=== PATIENT | female | born 1980 | race Caucasian/White ===

== ENCOUNTER 2025-03-12 20:44 | Emergency (ER) | payer MEDICARE, OTHER, SELFPAY ==
[2025-03-12 20:46] VITALS: BP 116/81
[2025-03-12 21:10] LABS: Hematocrit 43.1 % (37.0-47.0); Hemoglobin 14.8 g/dL (12.0-16.0); Mean Corp Hgb Conc. 34.3 g/dL (33.0-37.0); Mean Corpuscular Volume 94.3 fL (81.0-99.0); Nucleated Red Blood Cells % 0 %; Platelet Count 293 10^3/uL (130-400); Red Cell Dist. Width 12.9 % (11.5-14.5)
[2025-03-12 21:23] LABS: HCG, Serum Qualitative Screen Negative
[2025-03-12 21:30] LABS: ALT (SGPT) 24 U/L (0-35); AST (SGOT) 27 U/L (14-36); Albumin 4.4 g/dl (3.5-5.0); Alkaline Phosphatase 57 U/L (38-126); Blood Urea Nitrogen 12 mg/dl (7-17); COVID-19 Antigen Negative (Negative); Calcium 9.6 mg/dl (8.4-10.2); Carbon Dioxide 29 mmol/L (22-30); Chloride 103 mmol/L (98-107); Glucose 71 mg/dl (70-99); Potassium 4.2 mmol/L (3.5-5.1); Sodium 137 mmol/L (135-145); Total Protein 6.9 g/dl (6.3-8.2); eGFR > 60.00
[2025-03-12 21:32] LABS: Troponin I < 0.012 ng/ml
[2025-03-12 23:19] VITALS: BP 104/65
[2025-03-12 23:38] VITALS: BMI 23.9
--- NOTE | 2025-03-12 23:59 | ED.CVA ---
History of Present Illness
General
Chief Complaint: CVA/TIA Symptoms
Source: patient
Time Seen by Provider: 03/12/25 23:33
Onset of Stroke Symptoms
Onset of symptoms known: Yes
Date of onset of symptoms: 02/12/25
History of Present Illness
History of Present Illness:
Note:
CHIEF COMPLAINT(S)
Migraine headaches and blurred vision.
HISTORY OF PRESENT ILLNESS
The patient is a 44-year-old female presenting with migraine headaches and blurred vision, primarily affecting the left eye. Her migraines began in January, during which she experienced nine episodes in 30 days. She described episodes of numbness
in her arms, sometimes affecting both arms and sometimes just the left. Her vision has been notably blurry, leading to an eye examination by an wafer machine operator who noted a worsening of her vision. She also mentioned severe neck pain and a recent
surgical history at cervical levels C4-C5 and a prior surgery at C5-C6. The patients migraines showed improvement with sleep and wldy-wlb-pcbpvkj medications such as Tylenol and aspirin. She had not taken her thyroid medication in two weeks due to a
change in her primary care physician. She is on treatment for hypothyroidism, including levothyroxine and liothyronine.
The patient expressed concerns about the possibility of her blurred vision being related to her thyroid medication lapse. The provider explained that while thyroid issues could contribute, it was unlikely without other symptoms like abnormal heart
rate or blood pressure changes. Thyroid disease were discussed as part of the differential due to her thyroid medication history, but her vital signs were stable with no signs of acute thyroid crisis. Her recent head CT was normal, providing
reassurance against acute events like tumors or significant bleeding.
The patient has noted excessive sleepiness, sometimes sleeping for up to 20 hours, contributing to her generalized fatigue.
PAST MEDICAL AND SURGICAL HISTORY
Cervical spine surgeries at C5-C6 and C4-C5 for neck pain.
SOCIAL DETERMINANTS AFFECTING HEALTH
The patient discussed financial strain related to missed work due to her health conditions.
REVIEW OF SYSTEMS
- Neurological: Frequent migraines with associated arm numbness.
- Ophthalmological: Blurred vision, more pronounced in the left eye, recent worsening.
- Musculoskeletal: Severe neck pain post cervical spine surgeries.
PHYSICAL EXAM
General: Alert, no acute distress.
Skin: Warm, dry.
Head: Normocephalic, atraumatic.
Neck: Supple, trachea midline.
Eyes: Left upper eyelid sty noted, pupils equal, reactive to light.
Ears, Nose, Mouth, and Throat: Oral mucosa moist.
Cardiovascular: Normal peripheral perfusion, no edema. Heart normal, regular rhythm.
Respiratory: Respirations are non-labored.
Gastrointestinal: Abdomen nondistended.
Back: Normal range of motion, normal alignment.
Musculoskeletal: Normal range of motion, normal strength. Normal lfkmpk-av-mgmd, tyah-rb-wome coordination.
Neurological: Alert and oriented to person, place, time, and situation, no focal neurological deficit observed.
Psychiatric: Cooperative, appropriate mood & affect.
PLAN
- Prescribe and ensure the patient resumes her thyroid medication, levothyroxine, 10 micrograms daily.
- Referral to an wallpaper installer for further evaluation of the sty and blurry vision.
- Consider consult with a neurologist for recurrent migraines if symptoms persist.
- Advise warm compresses for the eye sty, considering antibiotic drops if no improvement noted.
- Follow-up with primary care physician for continuation of care and medication management.
- Education on signs of thyroid imbalance and when to seek immediate medical attention.
DIFFERENTIAL DIAGNOSIS
The Differential Diagnosis includes, in no particular order and is not limited to:
1. Migraine.
2. Hypothyroidism.
3. Cervical spine issues.
4. Stroke (less likely due to normal CT and history).
5. Ophthalmological conditions (e.g., sty, refraction error changes).
6. Medication lapse (thyroid medication not taken).
7. Central nervous system lesion (deemed less likely).
8. Myasthenia gravis.
9. Multiple sclerosis.
10. Chronic fatigue syndrome.
EKG
My independent EKG interpretation is:
- Rhythm: Normal size rhythm
- Heart Rate: 65
- Ringle: Normal axis
- Intervals: Normal
- Abnormalities: No acute ischemic changes
Disposition:
SUMMARY OF ENCOUNTER
The patient, a 44-year-old female, was evaluated due to worsening visual acuity noted by her wafer machine operator and associated with intermittent numbness. She has a recent history of migraine headaches, blurred vision primarily affecting her left eye, and
neck pain following cervical spine surgeries. Upon examination, the patients general appearance and motor function were normal. Her CBC showed mild leukocytosis (11.2 x10^9/L), while CMP, troponin levels, and COVID test were all normal. A head CT
did not reveal any acute abnormalities. An EKG showed no ischemic changes. The patient was informed and reassured about her symptoms.
PLAN
- Restart thyroid medication with liothyronine (synthetic T3),which she has not been taking.
- Referral to an wallpaper installer for the evaluation of visual symptoms and a potential sty.
- Education provided for the management of thyroid imbalance symptoms.
INDEPENDENT REVIEW OF LABS AND INTERPRETATION OF TESTS
- My independent review of CBC indicates mild leukocytosis (11.2 x10^9/L).
- My independent review of CMP shows normal results.
- My independent troponin interpretation is normal.
- My independent interpretation of head CT is normal.
- My independent EKG interpretation: Rhythm normal, heart rate 65, normal axis, no acute ischemic changes.
MEDICATION RECONCILIATION
- Prescription provided for liothyronine to address her thyroid medication lapse.
MEDICAL DECISION MAKING
- Number and Complexity of Problems Addressed: Chronic conditions affecting care include hypothyroidism, recurrent migraines, and cervical spine issues. Differential diagnosis includes migraine, hypothyroidism, cervical spine issues,
ophthalmological conditions, and effects of medication lapse.
- Data:
Category 1
My independent review of EKG and head CT.
- Risk:
Prescription medication management for thyroid disease was decided upon.
Consideration of Admission/Observation: Escalation of care, including admission/observation, was considered but not deemed necessary as the patients work-up was reassuring, symptoms were well-controlled upon reevaluation, and she was stable for
outpatient follow-up.
DIAGNOSIS
- Migraine (G43.909)
- Hypothyroidism (E03.9)
- Visual disturbance (H53.8)
Phy Exam
Physical Exam
Physical Exam:
.
Course
Orders/Labs/Results
Orders:
Orders
03/12/25 20:53
Electrocardiogram (*1) Urgent
Reason for Study: Chest Pain
EKG- Treatment ONCE
Test Result ONCE
03/12/25 20:54
CT Head W/o Iv Contrast Urgent
Comment:
Reason For Exam: dizziness, blurry vision
03/12/25 20:58
COVID-19 Antigen Urgent
Source: Nasal Swab
Complete Blood Count/With Diff Urgent
Comprehensive Metabolic Panel Urgent
HCG, Serum Qualitative Screen Urgent
Troponin I Urgent
Influenza A+B Rapid Molecular Urgent
DANIEL Source: Nasal Swab
Specimen Description:
Abnormal Lab Results
03/12/25
20:58
WBC 11.2 H 10^3/uL
(4.8-10.8)
MCH 32.4 H pg
(27.0-31.0)
Absolute Neuts (auto) 8.0 H 10^3/uL
(1.4-6.5)
Absolute Monos (auto) 0.7 H 10^3/uL
(0.1-0.6)
03/12/25 20:58
03/12/25 20:58
Vital Signs
Initial and Last Documented VS:
Initial Vital Signs
Temp Pulse Resp BP Pulse Ox
98.2 F 80 18 116/81 100
03/12/25 20:46 12/29/25 20:46 03/12/25 20:46 03/12/25 20:46 03/12/25 20:46
Last Documented Vital Signs
Temp Pulse Resp BP Pulse Ox
98.2 F 84 18 110/62 100
03/12/25 20:46 03/12/25 23:57 03/12/25 23:57 03/13/25 00:04 03/13/25 00:01
*Pulse Oximetry
SaO2: 100
Oxygen Mode of Delivery: Room air
Patient hypoxic: no
*Critical Care Note
Total Time (30-74mins, 75-104mins- exclusive of procedures): Not Applicable
ED Attending Note
-
Portions of this chart may have been created with voice recognition software.� Occasional wrong word or��sound alike� substitutions may have occurred due to the inherent limitations of voice recognition software.
Discharge Plan
Departure
Patient Disposition: Home (Routine Discharge)
Date of Disposition: 03/12/25
Time of Disposition: 23:59
Patient with high blood pressure during this ER visit?: No
Discharge Problem:
Blurred vision, Headache
Instructions: Headache in adults - ED (DC)
Prescriptions:
New
liothyronine [Cytomel] 5 mcg tablet
10 mcg PO DAILY Qty: 60 0RF
No Action
gabapentin 600 MG tablet
600 mg PO QID
liothyronine [Cytomel] 5 MCG tablet
10 mcg PO DAILY
oxycodone-acetaminophen 5 MG/325 MG tablet
1 tab PO QID PRN (Reason: PAIN)
citalopram 20 MG tablet
40 mg PO DAILY
levothyroxine 50 MCG tablet
50 mcg PO DAILY
Zinc
Activity Restrictions/Additional Instructions:
Blurred vision
Please see your doctor in follow-up in the next 2 weeks. Return immediately for numbness, tingling, motor weakness, worsening headaches, worsening vision changes, vision loss, double vision or any other concerns
Interventions
Interventions:
*General Assessment Last Done: 03/12/25 20:51
*Neglect/Abuse Screening Last Done: 03/13/25 00:09
*ED COVID-19 Vaccine History Last Done: 03/12/25 20:51
*ED Influenza Vaccine History Last Done: 03/12/25 20:51
[facility] Fall Risk Assessment Tool Last Done: 03/13/25 00:09
*Risk Screen - Suicide (C-SSRS) Last Done: 03/12/25 20:51
*Nursing Disposition Last Done: 03/13/25 00:29
ED- Pulmonary Assessment Last Done: 03/13/25 00:09
ED- Neurological Assessment Last Done: 03/13/25 00:09
ED- Cardiac Assessment Last Done: 03/13/25 00:09
ED Swallowing Screen Last Done: 03/13/25 00:09
Discharge Date and Time
Discharge Date/Time: 03/13/25 00:30
Print Language: OMANI
[2025-03-13 00:04] VITALS: BP 110/62
== END 2025-03-13 00:30 | disposition home or self-care (01) ==
LOC: EMR 20:44
PROVIDERS: Emergency Medicine; EMERGENCY PHYSICIAN Emergency Medicine
DX: G43.909 Migraine, unspecified, not intractable, without status migrainosus (principal); H53.9 Unspecified visual disturbance; E03.9 Hypothyroidism, unspecified; Z79.890 Hormone replacement therapy; Z11.52 Encounter for screening for COVID-19; Z91.148 Patient's other noncompliance with medication regimen for other reason
CPT/HCPCS: 99285; 70450; 80053; 84484; 84703; 85025; 87502; 87811; 93005